=== PATIENT | female | born 1970 | race Caucasian/White ===

== ENCOUNTER 2017-04-08 02:16 | Emergency (ER) | payer OTHER ==
[~2017-04-08] VITALS: Ht 160 cm; Wt 83.9 kg
[~2017-04-08 02:16] MED LIST: 'PARAFON FORTE500 M1 PO; ATORVASTATIN CA40 M1 PO; CYCLOBENZAPRINE5 M3 PO; HYDROCODONE BIT1 T11 PO; MEDROL DOSEPAK4 MG PO; NAPROSYN500 MG PO
[2017-04-08] MEDS ORDERED: CYCLOBENZAPRINE10 MG PO (02:33)
[2017-04-08] MEDS ORDERED: NAPROSYN500 MG PO (02:33)
== END 2017-04-08 04:06 | disposition home or self-care (01) ==
LOC: ED 02:16
DX: S39.012A Strain of muscle, fascia and tendon of lower back, initial encounter (principal); F31.9 Bipolar disorder, unspecified; N17.9 Acute kidney failure, unspecified; F17.200 Nicotine dependence, unspecified, uncomplicated; M79.7 Fibromyalgia; Z91.013 Allergy to seafood; W18.30XA Fall on same level, unspecified, initial encounter; Y93.E1 Activity, personal bathing and showering; Y92.9 Unspecified place or not applicable; Y99.9 Unspecified external cause status

== ENCOUNTER 2017-10-05 02:11 | Emergency (ER) | payer OTHER ==
[~2017-10-05] VITALS: Ht 160 cm; Wt 81.6 kg
[~2017-10-05 02:11] MED LIST changes: +CYCLOBENZAPRINE10 MG PO
[2017-10-05 03:31] LABS: BASO # 0.2 10*3/uL (0.0-0.1); BASO % 1.9 % (0.0-1.0); EOS # 0.2 10*3/uL (0.0-0.4); EOS % 2.4 % (1.0-4.0); HEMATOCRIT 40.5 % (37.0-47.0); HEMOGLOBIN 13.3 g/dl (12.0-16.0); LYMPH # 3.7 10*3/uL (1.3-4.4); LYMPH % 38.1 % (27.0-41.0); MEAN CELL VOLUME 87.7 fl (81.0-99.0); MEAN CORPUSCULAR HGB 28.8 pg (27.0-31.0); MEAN CORPUSCULAR HGB CONC 32.8 g/dl (33.0-37.0); MEAN PLATELET VOLUME 10.8 fl (9.6-12.3); MONO # 0.8 10*3/uL (0.1-1.0); MONO % 8.7 % (3.0-9.0); NEUT # 4.6 10*3/uL (2.3-7.9); NEUT % 48.4 % (47.0-73.0); PLATELET COUNT AUTOMATED 289 10*3/uL (130-400); RED BLOOD COUNT 4.62 10*6/uL (4.10-5.10); RED CELL DISTRI WIDTH 13.3 % (0-14.5); WHITE BLOOD COUNT 9.6 10*3/uL (4.8-10.8)
[2017-10-05 03:40] LABS: INTERNATIONAL NORM RATIO 0.9 (2.0-3.5)
[2017-10-05 03:49] LABS: ALBUMIN 3.3 gm/dl (3.1-4.5); ALKALINE PHOSPHATASE 136 U/L (45-117); BUN 13 mg/dl (7-24); CHLORIDE 106 mmol/L (98-107); CREATININE 1.04 mg/dL (0.55-1.02); LIPASE 243 U/L (73-393); POTASSIUM 3.3 mmol/L (3.5-5.1); SGOT/AST 7 IU/L (3-35); SGPT/ALT 19 U/L (12-78); SODIUM 141 mmol/L (136-145); TOTAL PROTEIN 7.5 gm/dL (6.4-8.2)
[2017-10-05 03:50] LABS: TROPONIN I < 0.015 ng/ml (<0.045)
[2017-10-05] MEDS ORDERED: CARAFATE1 GM/10 ML PO (04:32)
== END 2017-10-05 04:42 | disposition home or self-care (01) ==
LOC: ED 02:11
PROVIDERS: Emergency Medicine
DX: K21.9 Gastro-esophageal reflux disease without esophagitis (principal); F17.200 Nicotine dependence, unspecified, uncomplicated; Z91.013 Allergy to seafood

== ENCOUNTER 2018-02-04 15:52 | Emergency (ER) | payer OTHER ==
[~2018-02-04] VITALS: Ht 160 cm; Wt 77.1 kg
[~2018-02-04 15:52] MED LIST changes: +CARAFATE1 GM/10 ML PO
[2018-02-04] MEDS ORDERED: NORCO 5-325 TA1 EACH PO (16:37)
[2018-02-04] MEDS ORDERED: CEPHALEXIN500 M1 PO (16:37)
== END 2018-02-04 17:15 | disposition home or self-care (01) ==
LOC: ED 15:52
DX: T23.201A Burn of second degree of right hand, unspecified site, initial encounter (principal); F17.200 Nicotine dependence, unspecified, uncomplicated; Z91.013 Allergy to seafood; Z90.710 Acquired absence of both cervix and uterus; X08.8XXA Exposure to other specified smoke, fire and flames, initial encounter; Y93.89 Activity, other specified; Y92.89 Other specified places as the place of occurrence of the external cause; Y99.8 Other external cause status